=== PATIENT | male | born 1970 | race Caucasian/White ===

== ENCOUNTER 2020-08-25 19:39 | Emergency (ER) | payer OTHER ==
[2020-08-25 20:52] LABS: RED BLOOD COUNT 5.02 M/UL (4.20-5.50); WHITE BLOOD COUNT 7.9 K/UL (4.5-11.0)
[2020-08-25 21:08] LABS: BUN/CREATININE RATIO 14 (0-10)
[2020-08-26] MEDS ORDERED: ASPIRIN CHEWABL81 MG PO (02:18)
== END 2020-08-26 02:30 | disposition home or self-care (01) ==
LOC: ER1 19:39
PROVIDERS: Family Medicine
DX: R10.13 Epigastric pain (principal); R07.9 Chest pain, unspecified; M25.562 Pain in left knee; R11.2 Nausea with vomiting, unspecified; R19.7 Diarrhea, unspecified; I11.0 Hypertensive heart disease with heart failure; I50.9 Heart failure, unspecified; Z86.19 Personal history of other infectious and parasitic diseases; F17.210 Nicotine dependence, cigarettes, uncomplicated; Z88.1 Allergy status to other antibiotic agents
CPT/HCPCS: 36415; 71045; 73564; 80053; 81001; 82550; 82553; 83690; 83874; 84484; 85025; 93005; 99285